=== PATIENT | male | born 1980 ===

== ENCOUNTER 2025-02-27 07:00 | Day surgery (SDC) | payer OTHER ==
[2025-02-19 14:04] VITALS: BP 121/84
[~2025-02-27] VITALS: Ht 182.9 cm; Wt 86.2 kg
[~2025-02-27 07:00] MED LIST: COZAAR100 MG PO; KEPPRA500 MG PO; TOPROL XL100 M1 PO; ZOLOFT20 MG/1 ML
[2025-02-27] MEDS ORDERED: CEFAZOLIN SODIUM 1,000 MG VIAL ONE (07:36)
[2025-02-27] MEDS ORDERED: SUGAMMADEX SODIUM 200 MG/2 ML VIAL IV ONE ×2 (09:48→10:00)
[2025-02-27] MEDS ORDERED: LIDOCAINE HCL 1%/EPINEPHRINE 20ML VIAL IJ ONE ×2 (09:49→10:00)
[2025-02-27] MEDS ORDERED: DEXAMETHASONE SODIUM PHOSPHATE 4 MG/ML VIAL ONE (09:49)
[2025-02-27] MEDS ORDERED: DEXAMETHASONE SODIUM PHOSPHATE 4 MG/ML VIAL IV ONE (10:00)
[2025-02-27] MEDS ORDERED: CEFAZOLIN SODIUM 1,000 MG VIAL IV ONE (10:00)
== END 2025-02-27 13:45 | disposition home or self-care (01) ==
LOC: CIR.AMB 07:00 → ADM 12:30 → CIR.AMB 13:45
PROVIDERS: ATTEND Orthopaedic Surgery
DX: M75.01 Adhesive capsulitis of right shoulder (principal); M24.111 Other articular cartilage disorders, right shoulder